=== PATIENT | female | born 1945 | race Caucasian/White ===

== ENCOUNTER 2019-12-11 20:12 | Emergency (ER) | payer OTHER ==
[~2019-12-11] VITALS: Ht 157.5 cm; Wt 65.8 kg
[~2019-12-11 20:12] MED LIST: GLUXR500 PO; PHEN100C4 PO; PRO20 PO
[2019-12-11 20:21] VITALS: BP_SYST 157
--- NOTE | 2019-12-11 20:27 | NUR ---
tPatient triaged and placed in waiting room. VSS and patient appears in no acute distress at this time. Accompanied by daughter, awaiting available bed, and MD notified of need for MSE.
--- NOTE | 2019-12-11 22:22 | NUR ---
Patient was wheeled into ED by daughter c/o right ankle pain. Pt states she was bending over to pickup driver mail, lost balance and fell. Pt tried to use ottoman to pick herself up but it moved causing patient to slip and fall, twisting ankle and per patient "felt a pop." Noted swelling to right ankle. Pt unable to bear weight. Pt denies hitting head and losing consciousness. NO other injuries/complaints per patient or noted.
--- NOTE | 2019-12-11 22:29 | NUR ---
ER Dr. Zheng in triage examining patient.
[2019-12-11 22:45] VITALS: BP_SYST 144
[2019-12-11] MEDS ORDERED: IBUPROFEN 600 MG TABLET PO ONE (22:45)
--- NOTE | 2019-12-11 22:45 | NUR ---
Patient given written and verbal discharge instructions and verbalizes understanding. ER MD discussed with patient the results and treatment provided. Patient in stable condition. ID arm band removed. Rx of ibuprofen given. Patient educated on pain management and to follow up with PMD. Pain Scale 0. Opportunity for questions provided and answered. Medication side effect fact sheet provided.
== END 2019-12-11 22:45 | disposition home or self-care (01) ==
LOC: SED 20:12
DX: S93.401A Sprain of unspecified ligament of right ankle, initial encounter (principal); E11.9 Type 2 diabetes mellitus without complications; Z79.84 Long term (current) use of oral hypoglycemic drugs; Z79.899 Other long term (current) drug therapy; W01.0XXA Fall on same level from slipping, tripping and stumbling without subsequent striking against object, initial encounter; Y93.89 Activity, other specified; Y92.89 Other specified places as the place of occurrence of the external cause; Y99.8 Other external cause status
CPT/HCPCS: 99283

== ENCOUNTER 2024-07-25 07:55 | Inpatient (IN) | payer OTHER ==
[~2024-07-25] VITALS: Ht 157.5 cm; Wt 68.0 kg
[2024-07-25] MEDS: 0.45% NACL 1,000 ML IV SCH (06:36)
[2024-07-25 07:56] VITALS: BP_SYST 141; PULSE 110; RESP 18; TEMP 98; O2SAT 96
[2024-07-25 08:43] LABS: BASOPHILS # (AUTO) 0.1 K/uL (0.0-0.2); BASOPHILS % (AUTO) 0.8 % (0.0-2.0); EOSINOPHILS # (AUTO) 0.2 K/uL (0.0-0.4); HEMOGLOBIN 13.4 g/dL (12.0-16.0); LYMPHOCYTES # (AUTO) 1.7 K/uL (1.0-5.5); MEAN CORPUSCULAR HEMOGLOBIN 30 pg (27-31); MEAN CORPUSCULAR HGB CONC 33 % (32-36); MEAN CORPUSCULAR VOLUME 89 fL (79.0-98.0); MONOCYTES # (AUTO) 1.2 K/uL (0.0-1.0); MONOCYTES % (AUTO) 9.9 % (1.7-9.3); NEUTROPHILS % (AUTO) 73.3 % (40.0-70.0); PLATELET COUNT (AUTO) 265 K/uL (130-430); RED BLOOD CELL COUNT(AUTO) 4.52 MIL/uL (4.2-6.2); RED CELL DISTRIBUTION WIDTH 13.9 % (9.0-15.0); WHITE BLOOD COUNT (AUTO) 12.3 K/uL (4.8-10.8)
[2024-07-25 09:00] LABS: ALANINE AMINOTRANSFERASE 28 U/L (12-78); ALBUMIN 3.3 g/dL (3.4-4.8); ANION GAP 9 (5-15); ASPARTATE AMINOTRANSFERASE 18 U/L (10-37); CALCIUM 9.3 mg/dL (8.4-11.0); CARBON DIOXIDE 25 mmol/L (23-29); CHLORIDE 98 mmol/L (98-107); CREATININE 1.43 mg/dL (0.55-1.30); GLUCOSE 188 mg/dL (74-106); SODIUM SERUM 132 mmol/L (136-145); TOTAL BILIRUBIN 0.4 mg/dL (0.0-1.0); TOTAL PROTEIN, SERUM 7.7 g/dL (6.4-8.3); UREA NITROGEN, BLOOD 12 mg/dL (8-21)
[2024-07-25 09:03] LABS: BILIRUBIN,DIRECT 0.1 mg/dL (0.0-0.3); LIPASE 32 U/L (16-77)
[2024-07-25] MEDS: ONDANSETRON HCL 4 MG/2 ML VIAL IVP ONE (09:10)
[2024-07-25] MEDS: MORPHINE 2 MG/ML INJ. SYRINGE IVP ONE (09:11)
[2024-07-25] MEDS ORDERED: ACT35 PO (10:09)
[2024-07-25] MEDS ORDERED: LOSA-412 PO (10:09)
[2024-07-25] MEDS ORDERED: FAMO20TA8 PO (10:09)
[2024-07-25] MEDS ORDERED: SIMV-343 PO (10:09)
[2024-07-25] MEDS: PIPERACILLIN/TAZO 3.375 GM in NS 50 ML IV ONE (10:13)
[2024-07-25] MEDS ORDERED: PIPERACILLIN/TAZOBACTAM 3.375 GM/VIAL (ZOSYN) IV ONE ×2 (10:15→15:25)
[2024-07-25 13:25] LABS: BILIRUBIN,URINE NEGATIVE (NEGATIVE); BLOOD, URINE NEGATIVE (NEGATIVE); CLARITY/URINE CLEAR (CLEAR); COLOR,URINE YELLOW (YELLOW); GLUCOSE,URINE NEGATIVE (NEGATIVE); KETONES,URINE NEGATIVE (NEGATIVE); LEUKOCYTE ESTERASE ,URINE TRACE (NEGATIVE); NITRITE, URINE NEGATIVE (NEGATIVE); PROTEIN URINE NEGATIVE (NEGATIVE); UROBILINOGEN,URINE 0.2 (0.2-1.0)
[2024-07-25 13:39] LABS: BACTERIA,URINE MANY /HPF (None Seen); RBC,URINE NONE SEEN /HPF (0-3); WBC,URINE 0-3 /HPF (0-3)
[2024-07-25] MEDS: INSULIN REGULAR, HUMAN 100 UNITS/ML, 3 ML VIAL SUBCUT ONE (15:20)
[2024-07-25] MEDS: PIPERACILLIN/TAZO 3.375 GM in D5W 50 ML IV SCH (15:25)
[2024-07-25] MEDS: FAMOTIDINE 20 MG TABLET PO ONE (15:25)
[2024-07-25] MEDS: INSULIN REGULAR, HUMAN 100 UNITS/ML, 3 ML VIAL SUBCUT SCH (17:00)
[2024-07-25 21:00] VITALS: BP_SYST 136; PULSE 87; RESP 20; TEMP 97.1; O2SAT 97
[2024-07-25] MEDS ORDERED: PHENYTOIN 100 MG CAPSULE PO SCH ×3 (21:00→23:30)
[2024-07-26] VITALS: BP_SYST 126; PULSE 89; RESP 18; TEMP 97; O2SAT 97
[2024-07-26] MEDS: PHENYTOIN 100 MG CAPSULE PO ONE (03:50)
[2024-07-26 08:00] VITALS: O2SAT 99
[2024-07-26 08:12] LABS: BASOPHILS % (AUTO) 0.5 % (0.0-2.0); EOSINOPHILS # (AUTO) 0.4 K/uL (0.0-0.4); EOSINOPHILS % (AUTO) 4.6 % (0.0-4.0); HEMATOCRIT 38.2 % (36-48); HEMOGLOBIN 12.9 g/dL (12.0-16.0); LYMPHOCYTES # (AUTO) 2.2 K/uL (1.0-5.5); LYMPHOCYTES % (AUTO) 29.2 % (20.5-51.5); MEAN CORPUSCULAR HEMOGLOBIN 30 pg (27-31); MEAN CORPUSCULAR HGB CONC 34 % (32-36); MEAN CORPUSCULAR VOLUME 88 fL (79.0-98.0); MONOCYTES # (AUTO) 0.7 K/uL (0.0-1.0); MONOCYTES % (AUTO) 8.7 % (1.7-9.3); NEUTROPHILS # (AUTO) 4.4 K/uL (1.8-7.7); PLATELET COUNT (AUTO) 256 K/uL (130-430); RED BLOOD CELL COUNT(AUTO) 4.32 MIL/uL (4.2-6.2); RED CELL DISTRIBUTION WIDTH 13.8 % (9.0-15.0); WHITE BLOOD COUNT (AUTO) 7.7 K/uL (4.8-10.8)
[2024-07-26 08:28] LABS: ANION GAP 7 (5-15); CALCIUM 8.8 mg/dL (8.4-11.0); CARBON DIOXIDE 26 mmol/L (23-29); CHLORIDE 98 mmol/L (98-107); CREATININE 1.44 mg/dL (0.55-1.30); GLUCOSE 140 mg/dL (74-106); SODIUM SERUM 131 mmol/L (136-145); UREA NITROGEN, BLOOD 11 mg/dL (8-21)
[2024-07-26] MEDS ORDERED: RISEDRONATE SODIUM 35 MG TABLET PO SCH (09:00)
[2024-07-26] MEDS: SIMVASTATIN 20 MG TABLET PO SCH (09:38)
[2024-07-26] MEDS: LOSARTAN POTASSIUM 25 MG TABLET PO SCH (09:38)
[2024-07-26] MEDS: FLUoxetine HCL 20 MG CAPSULE (PROzac) PO SCH (09:39)
[2024-07-26] MEDS: FAMOTIDINE 20 MG TABLET PO SCH (09:40)
[2024-07-26] MEDS: MILK OF MAGNESIA 30 ML UDC PO PRN (09:46)
[2024-07-26] MEDS ORDERED: NALOXONE HCL 0.4 MG/ML AMP (NARCAN) IVP PRN (12:00)
[2024-07-26] MEDS ORDERED: D5W 1,000 ML IV PRN (12:15)
[2024-07-26] MEDS ORDERED: DEXTROSE 50%-WATER 50 ML DISP.SYRIN IVP PRN (12:15)
[2024-07-26] MEDS ORDERED: GLUCOSE (DEXTROSE) ORAL GEL -Adults PO PRN (12:15)
[2024-07-26 12:38] VITALS: BP_SYST 134; PULSE 86; RESP 18; TEMP 97.2; O2SAT 97
[2024-07-26] MEDS: INSULIN REGULAR, HUMAN 100 UNITS/ML, 3 ML VIAL (humuLIN R) SUBCUT PRN (13:42)
[2024-07-26] MEDS: HYDROcodone/ACETAMIN 5-325 MG TAB (NORCO/ VICODIN) PO PRN (13:49)
[2024-07-26 16:44] VITALS: BP_SYST 116; PULSE 83; RESP 18; TEMP 97.4; O2SAT 98
[2024-07-26 20:05] VITALS: BP_SYST 129; PULSE 80; RESP 18; TEMP 96.5; O2SAT 98
[2024-07-26 20:55] VITALS: O2SAT 96
[2024-07-26] MEDS ORDERED: PHENYTOIN 100 MG CAPSULE PO SCH ×2 (21:00)
[2024-07-26] MEDS: PHENYTOIN 100 MG CAPSULE PO SCH (21:18)
[2024-07-27] VITALS (7 sets, daily range): BP systolic 125–153; PULSE 70–95; RESP 15–19; TEMP 96.8–98.4; O2SAT 96–98
[2024-07-27 06:11] LABS: BASOPHILS % (AUTO) 0.6 % (0.0-2.0); EOSINOPHILS # (AUTO) 0.4 K/uL (0.0-0.4); EOSINOPHILS % (AUTO) 6.2 % (0.0-4.0); HEMATOCRIT 36.7 % (36-48); HEMOGLOBIN 12.6 g/dL (12.0-16.0); LYMPHOCYTES # (AUTO) 1.6 K/uL (1.0-5.5); LYMPHOCYTES % (AUTO) 23.1 % (20.5-51.5); MEAN CORPUSCULAR HEMOGLOBIN 30 pg (27-31); MEAN CORPUSCULAR HGB CONC 34 % (32-36); MEAN CORPUSCULAR VOLUME 88 fL (79.0-98.0); MONOCYTES # (AUTO) 0.6 K/uL (0.0-1.0); MONOCYTES % (AUTO) 9.1 % (1.7-9.3); NEUTROPHILS # (AUTO) 4.3 K/uL (1.8-7.7); PLATELET COUNT (AUTO) 266 K/uL (130-430); RED BLOOD CELL COUNT(AUTO) 4.17 MIL/uL (4.2-6.2); RED CELL DISTRIBUTION WIDTH 13.5 % (9.0-15.0)
[2024-07-27 06:27] LABS: ANION GAP 11 (5-15); CALCIUM 8.8 mg/dL (8.4-11.0); CARBON DIOXIDE 25 mmol/L (23-29); CHLORIDE 100 mmol/L (98-107); GLUCOSE 107 mg/dL (74-106); POTASSIUM 4.3 mmol/L (3.5-5.1); SODIUM SERUM 136 mmol/L (136-145); UREA NITROGEN, BLOOD 11 mg/dL (8-21)
[2024-07-27 09:34] LABS: BASOPHILS # (AUTO) 0.1 K/uL (0.0-0.2); BASOPHILS % (AUTO) 0.7 % (0.0-2.0); EOSINOPHILS # (AUTO) 0.5 K/uL (0.0-0.4); EOSINOPHILS % (AUTO) 6.5 % (0.0-4.0); HEMATOCRIT 40.2 % (36-48); HEMOGLOBIN 13.6 g/dL (12.0-16.0); LYMPHOCYTES # (AUTO) 2.5 K/uL (1.0-5.5); LYMPHOCYTES % (AUTO) 31.2 % (20.5-51.5); MEAN CORPUSCULAR HEMOGLOBIN 30 pg (27-31); MEAN CORPUSCULAR HGB CONC 34 % (32-36); MEAN CORPUSCULAR VOLUME 89 fL (79.0-98.0); MONOCYTES # (AUTO) 0.6 K/uL (0.0-1.0); MONOCYTES % (AUTO) 7.7 % (1.7-9.3); NEUTROPHILS # (AUTO) 4.3 K/uL (1.8-7.7); NEUTROPHILS % (AUTO) 53.9 % (40.0-70.0); PLATELET COUNT (AUTO) 295 K/uL (130-430); RED BLOOD CELL COUNT(AUTO) 4.54 MIL/uL (4.2-6.2); RED CELL DISTRIBUTION WIDTH 13.3 % (9.0-15.0)
[2024-07-27 19:31] LABS: BASOPHILS # (AUTO) 0.1 K/uL (0.0-0.2); BASOPHILS % (AUTO) 0.9 % (0.0-2.0); EOSINOPHILS # (AUTO) 0.5 K/uL (0.0-0.4); EOSINOPHILS % (AUTO) 7.9 % (0.0-4.0); HEMATOCRIT 35.5 % (36-48); HEMOGLOBIN 12.4 g/dL (12.0-16.0); LYMPHOCYTES # (AUTO) 1.7 K/uL (1.0-5.5); LYMPHOCYTES % (AUTO) 27.9 % (20.5-51.5); MEAN CORPUSCULAR HEMOGLOBIN 31 pg (27-31); MEAN CORPUSCULAR HGB CONC 35 % (32-36); MEAN CORPUSCULAR VOLUME 88 fL (79.0-98.0); MONOCYTES # (AUTO) 0.5 K/uL (0.0-1.0); NEUTROPHILS # (AUTO) 3.3 K/uL (1.8-7.7); NEUTROPHILS % (AUTO) 54.3 % (40.0-70.0); PLATELET COUNT (AUTO) 277 K/uL (130-430); RED BLOOD CELL COUNT(AUTO) 4.05 MIL/uL (4.2-6.2); RED CELL DISTRIBUTION WIDTH 13.5 % (9.0-15.0)
[2024-07-28] VITALS: BP_SYST 120; PULSE 93; RESP 18; TEMP 98.2
[2024-07-28 07:55] LABS: ANION GAP 11 (5-15); CALCIUM 8.9 mg/dL (8.4-11.0); CARBON DIOXIDE 24 mmol/L (23-29); CHLORIDE 102 mmol/L (98-107); CREATININE 1.27 mg/dL (0.55-1.30); GLUCOSE 126 mg/dL (74-106); POTASSIUM 4.4 mmol/L (3.5-5.1); SODIUM SERUM 137 mmol/L (136-145); UREA NITROGEN, BLOOD 8 mg/dL (8-21)
[2024-07-28 08:00] VITALS: BP_SYST 128; PULSE 81; RESP 16; TEMP 98.3; O2SAT 95; O2SAT 96
[2024-07-28 08:26] LABS: BASOPHILS # (AUTO) 0.1 K/uL (0.0-0.2); BASOPHILS % (AUTO) 0.8 % (0.0-2.0); EOSINOPHILS # (AUTO) 0.5 K/uL (0.0-0.4); EOSINOPHILS % (AUTO) 7.6 % (0.0-4.0); HEMATOCRIT 37.8 % (36-48); HEMOGLOBIN 12.8 g/dL (12.0-16.0); LYMPHOCYTES % (AUTO) 30.5 % (20.5-51.5); MEAN CORPUSCULAR HEMOGLOBIN 30 pg (27-31); MEAN CORPUSCULAR HGB CONC 34 % (32-36); MEAN CORPUSCULAR VOLUME 88 fL (79.0-98.0); MONOCYTES # (AUTO) 0.5 K/uL (0.0-1.0); MONOCYTES % (AUTO) 8.2 % (1.7-9.3); NEUTROPHILS # (AUTO) 3.5 K/uL (1.8-7.7); NEUTROPHILS % (AUTO) 52.9 % (40.0-70.0); PLATELET COUNT (AUTO) 307 K/uL (130-430); RED BLOOD CELL COUNT(AUTO) 4.29 MIL/uL (4.2-6.2); RED CELL DISTRIBUTION WIDTH 13.7 % (9.0-15.0); WHITE BLOOD COUNT (AUTO) 6.6 K/uL (4.8-10.8)
[2024-07-28 12:00] VITALS: BP_SYST 129; PULSE 80; RESP 14; TEMP 98.4; O2SAT 95
[2024-07-28 16:00] VITALS: BP_SYST 129; PULSE 82; RESP 14; TEMP 98.3; O2SAT 96
[2024-07-28 20:00] VITALS: BP_SYST 133; PULSE 92; RESP 18; O2SAT 98
[2024-07-28] MEDS: metroNIDAZOLE 500 mg/NS 100 ML IV SCH (21:27)
[2024-07-29] VITALS: BP_SYST 136; PULSE 80; RESP 18; TEMP 99.5; O2SAT 97
[2024-07-29 08:23] VITALS: O2SAT 98
[2024-07-29 08:31] VITALS: BP_SYST 136; PULSE 82; RESP 16; TEMP 97.1; O2SAT 98
[2024-07-29 09:26] VITALS: BP_SYST 121; PULSE 72; RESP 16; TEMP 97.1; O2SAT 98
[2024-07-29 11:11] VITALS: BP_SYST 138; PULSE 81; RESP 15; TEMP 97.7; O2SAT 97
[2024-07-29] MEDS ORDERED: AMOX-404 PO (12:57)
[2024-07-29] MEDS ORDERED: METR-154 PO (12:57)
== END 2024-07-29 13:48 | disposition home or self-care (01) | DRG 392 ==
LOC: SED 07:55 → SMU 12:13
PROVIDERS: ADMIT Specialist; ATTEND Specialist
DX: K57.32 Diverticulitis of large intestine without perforation or abscess without bleeding (principal); K59.00 Constipation, unspecified; I10 Essential (primary) hypertension; E66.9 Obesity, unspecified; I73.9 Peripheral vascular disease, unspecified; E78.5 Hyperlipidemia, unspecified; K21.9 Gastro-esophageal reflux disease without esophagitis; Z20.822 Contact with and (suspected) exposure to COVID-19; D72.829 Elevated white blood cell count, unspecified; E11.51 Type 2 diabetes mellitus with diabetic peripheral angiopathy without gangrene; Z68.27 Body mass index [BMI] 27.0-27.9, adult; Z79.899 Other long term (current) drug therapy; Z88.8 Allergy status to other drugs, medicaments and biological substances
CPT/HCPCS: 36415; 71045; 80048; 80076; 80185; 81000; 81001; 81015; 82948; 83605; 83690; 83880; 84484; 85025; 87040; 87086; 93005; 96365; 97110-GP; 97112-GP; 97116-GP; 97530-GP; 99285; J0696; J2270; J2405; J2543; J3490; J7030; J7060

== ENCOUNTER 2024-08-03 12:09 | Emergency (ER) | payer OTHER ==
[~2024-08-03] VITALS: Ht 157.5 cm; Wt 66.2 kg
[~2024-08-03 12:09] MED LIST changes: +ACT35 PO; +AMOX-404 PO; +FAMO20TA8 PO; +LOSA-412 PO; +METR-154 PO; +SIMV-343 PO
[2024-08-03 12:11] VITALS: BP_SYST 134; PULSE 92; RESP 20; TEMP 98.3; O2SAT 94
[2024-08-03 12:46] LABS: BASOPHILS # (AUTO) 0.1 K/uL (0.0-0.2); BASOPHILS % (AUTO) 0.6 % (0.0-2.0); EOSINOPHILS # (AUTO) 0.7 K/uL (0.0-0.4); EOSINOPHILS % (AUTO) 8.2 % (0.0-4.0); HEMATOCRIT 36.8 % (36-48); HEMOGLOBIN 12.7 g/dL (12.0-16.0); LYMPHOCYTES # (AUTO) 1.7 K/uL (1.0-5.5); LYMPHOCYTES % (AUTO) 20.5 % (20.5-51.5); MEAN CORPUSCULAR HEMOGLOBIN 30 pg (27-31); MEAN CORPUSCULAR HGB CONC 35 % (32-36); MEAN CORPUSCULAR VOLUME 86 fL (79.0-98.0); MONOCYTES # (AUTO) 0.6 K/uL (0.0-1.0); MONOCYTES % (AUTO) 7.4 % (1.7-9.3); NEUTROPHILS # (AUTO) 5.4 K/uL (1.8-7.7); NEUTROPHILS % (AUTO) 63.3 % (40.0-70.0); PLATELET COUNT (AUTO) 330 K/uL (130-430); RED BLOOD CELL COUNT(AUTO) 4.26 MIL/uL (4.2-6.2); RED CELL DISTRIBUTION WIDTH 13.5 % (9.0-15.0); WHITE BLOOD COUNT (AUTO) 8.5 K/uL (4.8-10.8)
[2024-08-03] MEDS: NACL 0.9% 1,000 ML IV ONE (13:05)
[2024-08-03 13:06] LABS: PROTHROMBIN TIME 10.4 SECS (9.5-12.5)
[2024-08-03 13:19] LABS: ALANINE AMINOTRANSFERASE 37 U/L (12-78); ANION GAP 12 (5-15); ASPARTATE AMINOTRANSFERASE 30 U/L (10-37); BILIRUBIN,DIRECT 0.1 mg/dL (0.0-0.3); CALCIUM 8.5 mg/dL (8.4-11.0); CARBON DIOXIDE 21 mmol/L (23-29); CHLORIDE 91 mmol/L (98-107); CREATINE KINASE, TOTAL 38 U/L (26-192); CREATININE 1.03 mg/dL (0.55-1.30); FREE T4 (FREE THYROXINE) 1.3 ng/dL (0.6-1.6); GLUCOSE 150 mg/dL (74-106); LIPASE 50 U/L (16-77); POTASSIUM 3.8 mmol/L (3.5-5.1); SODIUM SERUM 124 mmol/L (136-145); THYROID STIMULATING HORMONE 2.47 uIu/mL (0.34-4.82); TOTAL BILIRUBIN 0.2 mg/dL (0.0-1.0); TOTAL PROTEIN, SERUM 6.8 g/dL (6.4-8.3); UREA NITROGEN, BLOOD 15 mg/dL (8-21)
[2024-08-03 13:36] LABS: ACETONE, SERUM NEGATIVE (NEGATIVE)
[2024-08-03 14:38] LABS: BILIRUBIN,URINE NEGATIVE (NEGATIVE); BLOOD, URINE NEGATIVE (NEGATIVE); CLARITY/URINE CLEAR (CLEAR); COLOR,URINE YELLOW (YELLOW); GLUCOSE,URINE NEGATIVE (NEGATIVE); KETONES,URINE NEGATIVE (NEGATIVE); LEUKOCYTE ESTERASE ,URINE TRACE (NEGATIVE); NITRITE, URINE NEGATIVE (NEGATIVE); PH,URINE 6.5 (5.0-8.0); PROTEIN URINE NEGATIVE (NEGATIVE); UROBILINOGEN,URINE 0.2 (0.2-1.0)
[2024-08-03 14:46] LABS: BACTERIA,URINE RARE /HPF (None Seen); MUCUS,URINE None Seen /LPF (None Seen); RBC,URINE NONE SEEN /HPF (0-3); WBC,URINE 0-3 /HPF (0-3)
[2024-08-03 16:01] VITALS: BP_SYST 136; PULSE 87; RESP 16; TEMP 98.3; O2SAT 97
== END 2024-08-03 16:01 | disposition home or self-care (01) ==
LOC: SED 12:09
DX: E87.1 Hypo-osmolality and hyponatremia (principal); R53.1 Weakness; R11.0 Nausea; R19.7 Diarrhea, unspecified; E11.9 Type 2 diabetes mellitus without complications; I10 Essential (primary) hypertension; K21.9 Gastro-esophageal reflux disease without esophagitis; Z79.899 Other long term (current) drug therapy; Z79.2 Long term (current) use of antibiotics
CPT/HCPCS: 99285; 74176; 96360; 71045; 80076; 80048; 81001; 82009; 82550; 84439; 83690; 84443; 85025; 85610; 85730; 84484; 36415; 93005; 83605; J7030; 81000; 81015

== ENCOUNTER 2024-08-06 17:10 | Inpatient (IN) | payer OTHER ==
[~2024-08-06] VITALS: Ht 157.5 cm; Wt 68.0 kg
[2024-08-06 17:33] VITALS: BP_SYST 149; PULSE 76; RESP 18; TEMP 97.4; O2SAT 98
[2024-08-06 18:07] LABS: BASOPHILS % (AUTO) 0.4 % (0.0-2.0); EOSINOPHILS # (AUTO) 0.9 K/uL (0.0-0.4); EOSINOPHILS % (AUTO) 8.1 % (0.0-4.0); HEMATOCRIT 34.8 % (36-48); HEMOGLOBIN 12.2 g/dL (12.0-16.0); LYMPHOCYTES # (AUTO) 2.3 K/uL (1.0-5.5); LYMPHOCYTES % (AUTO) 20.2 % (20.5-51.5); MEAN CORPUSCULAR HEMOGLOBIN 30 pg (27-31); MEAN CORPUSCULAR HGB CONC 35 % (32-36); MEAN CORPUSCULAR VOLUME 86 fL (79.0-98.0); MONOCYTES # (AUTO) 0.9 K/uL (0.0-1.0); MONOCYTES % (AUTO) 8.1 % (1.7-9.3); NEUTROPHILS # (AUTO) 7.3 K/uL (1.8-7.7); NEUTROPHILS % (AUTO) 63.2 % (40.0-70.0); PLATELET COUNT (AUTO) 352 K/uL (130-430); RED BLOOD CELL COUNT(AUTO) 4.06 MIL/uL (4.2-6.2); RED CELL DISTRIBUTION WIDTH 13.8 % (9.0-15.0); WHITE BLOOD COUNT (AUTO) 11.6 K/uL (4.8-10.8)
[2024-08-06 18:16] LABS: INR 0.9 (0.8-1.2); PROTHROMBIN TIME 9.9 SECS (9.5-12.5)
[2024-08-06 18:22] LABS: ALANINE AMINOTRANSFERASE 30 U/L (12-78); ALBUMIN 2.9 g/dL (3.4-4.8); ANION GAP 12 (5-15); ASPARTATE AMINOTRANSFERASE 16 U/L (10-37); CALCIUM 8.3 mg/dL (8.4-11.0); CARBON DIOXIDE 19 mmol/L (23-29); CHLORIDE 92 mmol/L (98-107); CREATININE 1.02 mg/dL (0.55-1.30); GLUCOSE 135 mg/dL (74-106); POTASSIUM 4.3 mmol/L (3.5-5.1); SODIUM SERUM 123 mmol/L (136-145); TOTAL BILIRUBIN 0.2 mg/dL (0.0-1.0); TOTAL PROTEIN, SERUM 6.5 g/dL (6.4-8.3); UREA NITROGEN, BLOOD 17 mg/dL (8-21)
[2024-08-06 18:28] LABS: AMYLASE 52 U/L (0-100); BILIRUBIN,DIRECT 0.1 mg/dL (0.0-0.3); LACTATE DEHYDROGENASE 92 U/L (81-234); LIPASE 72 U/L (16-77)
[2024-08-06 18:37] LABS: ACETONE, SERUM NEGATIVE (NEGATIVE)
[2024-08-06 19:13] LABS: BILIRUBIN,URINE NEGATIVE (NEGATIVE); BLOOD, URINE NEGATIVE (NEGATIVE); CLARITY/URINE CLEAR (CLEAR); COLOR,URINE YELLOW (YELLOW); GLUCOSE,URINE NEGATIVE (NEGATIVE); KETONES,URINE NEGATIVE (NEGATIVE); LEUKOCYTE ESTERASE ,URINE TRACE (NEGATIVE); NITRITE, URINE NEGATIVE (NEGATIVE); PH,URINE 6.5 (5.0-8.0); PROTEIN URINE NEGATIVE (NEGATIVE); UROBILINOGEN,URINE 0.2 (0.2-1.0)
[2024-08-06 19:24] LABS: BACTERIA,URINE RARE /HPF (None Seen); MUCUS,URINE None Seen /LPF (None Seen); RBC,URINE NONE SEEN /HPF (0-3)
[2024-08-06] MEDS: NACL 0.9% 1,000 ML IV ONE ×2 (19:37→21:21)
[2024-08-06] MEDS: LORazepam 2 MG/ML VIAL IVP ONE (19:46)
[2024-08-06 21:58] VITALS: BP_SYST 134; PULSE 74; RESP 18; TEMP 97.8
[2024-08-06 22:28] LABS: ANION GAP 11 (5-15); CALCIUM 8.4 mg/dL (8.4-11.0); CARBON DIOXIDE 22 mmol/L (23-29); CHLORIDE 97 mmol/L (98-107); CREATININE 1.02 mg/dL (0.55-1.30); GLUCOSE 124 mg/dL (74-106); POTASSIUM 4.1 mmol/L (3.5-5.1); SODIUM SERUM 130 mmol/L (136-145); UREA NITROGEN, BLOOD 15 mg/dL (8-21)
[2024-08-06] MEDS: cefTRIAXone 1 GM IVPB PREMIX 50 ML IV ONE (23:20)
[2024-08-06] MEDS: DIPHENHYDRAMINE HCL 12.5 MG/5 ML UDC PO SCH (23:21)
[2024-08-06] MEDS: cefTRIAXone 1 GM in D5W 50 ML IV SCH (23:21)
[2024-08-07] VITALS: BP_SYST 128; PULSE 78; RESP 18; TEMP 97.8; O2SAT 98
[2024-08-07 07:40] LABS: ANION GAP 10 (5-15); CALCIUM 8.2 mg/dL (8.4-11.0); CARBON DIOXIDE 24 mmol/L (23-29); CHLORIDE 100 mmol/L (98-107); CREATININE 0.95 mg/dL (0.55-1.30); GLUCOSE 107 mg/dL (74-106); POTASSIUM 4.3 mmol/L (3.5-5.1); SODIUM SERUM 134 mmol/L (136-145); UREA NITROGEN, BLOOD 12 mg/dL (8-21)
[2024-08-07 08:00] VITALS: O2SAT 98
[2024-08-07 08:29] VITALS: BP_SYST 139; PULSE 78; RESP 18; TEMP 97.3; O2SAT 95
[2024-08-07 11:08] VITALS: BP_SYST 150; PULSE 84; RESP 16; TEMP 97.8; O2SAT 96
[2024-08-07] MEDS ORDERED: DIATR MEGLU/DIATRIZ SOD 30 ML SOLUTION PO ONE (14:15)
[2024-08-07 14:17] LABS: ANION GAP 10 (5-15); CALCIUM 8.9 mg/dL (8.4-11.0); CARBON DIOXIDE 24 mmol/L (23-29); CHLORIDE 98 mmol/L (98-107); CREATININE 1.21 mg/dL (0.55-1.30); GLUCOSE 181 mg/dL (74-106); POTASSIUM 4.3 mmol/L (3.5-5.1); SODIUM SERUM 132 mmol/L (136-145); UREA NITROGEN, BLOOD 13 mg/dL (8-21)
[2024-08-07 15:38] VITALS: BP_SYST 142; PULSE 93; RESP 16; TEMP 97.9; O2SAT 97
[2024-08-07 20:00] VITALS: BP_SYST 157; PULSE 89; RESP 18; TEMP 98.3; O2SAT 96
[2024-08-07] MEDS: INSULIN LISPRO SLIDING SCALE 100 UNITS/ML, 3 ML VIAL (humaLOG) SUBCUT PRN (21:07)
[2024-08-07 22:41] LABS: ANION GAP 9 (5-15); CALCIUM 8.8 mg/dL (8.4-11.0); CARBON DIOXIDE 25 mmol/L (23-29); CHLORIDE 98 mmol/L (98-107); CREATININE 1.11 mg/dL (0.55-1.30); GLUCOSE 157 mg/dL (74-106); POTASSIUM 4.1 mmol/L (3.5-5.1); SODIUM SERUM 132 mmol/L (136-145); UREA NITROGEN, BLOOD 15 mg/dL (8-21)
[2024-08-08] VITALS: BP_SYST 147; PULSE 85; RESP 18; TEMP 97.9; O2SAT 95
[2024-08-08 07:16] LABS: BASOPHILS % (AUTO) 0.4 % (0.0-2.0); EOSINOPHILS % (AUTO) 10.1 % (0.0-4.0); HEMATOCRIT 37.1 % (36-48); HEMOGLOBIN 12.7 g/dL (12.0-16.0); LYMPHOCYTES # (AUTO) 2.1 K/uL (1.0-5.5); LYMPHOCYTES % (AUTO) 20.9 % (20.5-51.5); MEAN CORPUSCULAR HEMOGLOBIN 30 pg (27-31); MEAN CORPUSCULAR HGB CONC 34 % (32-36); MEAN CORPUSCULAR VOLUME 87 fL (79.0-98.0); MONOCYTES # (AUTO) 0.8 K/uL (0.0-1.0); NEUTROPHILS # (AUTO) 5.9 K/uL (1.8-7.7); NEUTROPHILS % (AUTO) 60.6 % (40.0-70.0); PLATELET COUNT (AUTO) 371 K/uL (130-430); RED BLOOD CELL COUNT(AUTO) 4.26 MIL/uL (4.2-6.2); RED CELL DISTRIBUTION WIDTH 13.9 % (9.0-15.0); WHITE BLOOD COUNT (AUTO) 9.8 K/uL (4.8-10.8)
[2024-08-08 07:28] LABS: ANION GAP 11 (5-15); CALCIUM 8.7 mg/dL (8.4-11.0); CARBON DIOXIDE 25 mmol/L (23-29); CHLORIDE 96 mmol/L (98-107); CREATININE 1.03 mg/dL (0.55-1.30); GLUCOSE 126 mg/dL (74-106); POTASSIUM 4.1 mmol/L (3.5-5.1); SODIUM SERUM 132 mmol/L (136-145); UREA NITROGEN, BLOOD 14 mg/dL (8-21)
[2024-08-08 07:51] VITALS: O2SAT 97
[2024-08-08 08:35] VITALS: BP_SYST 146; PULSE 81; RESP 18; TEMP 97.2
[2024-08-08] MEDS: CITALOPRAM HYDROBROMIDE 20 MG TABLET PO SCH (12:29)
[2024-08-08 12:45] VITALS: BP_SYST 154; PULSE 92; RESP 16; TEMP 96.8; O2SAT 98
[2024-08-08 15:33] LABS: ANION GAP 11 (5-15); CARBON DIOXIDE 23 mmol/L (23-29); CHLORIDE 95 mmol/L (98-107); CREATININE 1.27 mg/dL (0.55-1.30); GLUCOSE 149 mg/dL (74-106); POTASSIUM 3.7 mmol/L (3.5-5.1); SODIUM SERUM 129 mmol/L (136-145); UREA NITROGEN, BLOOD 14 mg/dL (8-21)
[2024-08-08 16:45] VITALS: BP_SYST 158; PULSE 86; RESP 18; TEMP 98.2; O2SAT 98
[2024-08-08 20:00] VITALS: BP_SYST 157; PULSE 93; RESP 20; TEMP 98.8; O2SAT 98
[2024-08-08] MEDS ORDERED: PHENYTOIN 100 MG CAPSULE PO SCH (21:00)
[2024-08-08 22:34] LABS: ANION GAP 7 (5-15); CALCIUM 8.6 mg/dL (8.4-11.0); CARBON DIOXIDE 25 mmol/L (23-29); CHLORIDE 94 mmol/L (98-107); CREATININE 1.26 mg/dL (0.55-1.30); GLUCOSE 153 mg/dL (74-106); POTASSIUM 4.1 mmol/L (3.5-5.1); SODIUM SERUM 126 mmol/L (136-145); UREA NITROGEN, BLOOD 20 mg/dL (8-21)
[2024-08-08] MEDS: PHENYTOIN 100 MG CAPSULE PO ONE (23:51)
[2024-08-09 01:10] VITALS: RESP 20; TEMP 98; O2SAT 98
[2024-08-09 07:52] LABS: ANION GAP 8 (5-15); CALCIUM 8.7 mg/dL (8.4-11.0); CARBON DIOXIDE 24 mmol/L (23-29); CHLORIDE 94 mmol/L (98-107); CREATININE 1.05 mg/dL (0.55-1.30); GLUCOSE 151 mg/dL (74-106); POTASSIUM 3.8 mmol/L (3.5-5.1); SODIUM SERUM 126 mmol/L (136-145); UREA NITROGEN, BLOOD 14 mg/dL (8-21)
[2024-08-09 08:00] VITALS: O2SAT 97
[2024-08-09] MEDS ORDERED: PHENYTOIN 100 MG CAPSULE PO SCH (09:00)
[2024-08-09 11:07] VITALS: BP_SYST 151; PULSE 97; RESP 16; TEMP 97.2; O2SAT 96
[2024-08-09 15:03] VITALS: BP_SYST 143; PULSE 78; RESP 16; TEMP 96.1; O2SAT 99
[2024-08-09 16:01] LABS: ANION GAP 12 (5-15); CALCIUM 8.6 mg/dL (8.4-11.0); CARBON DIOXIDE 22 mmol/L (23-29); CHLORIDE 91 mmol/L (98-107); CREATININE 1.04 mg/dL (0.55-1.30); GLUCOSE 136 mg/dL (74-106); POTASSIUM 4.2 mmol/L (3.5-5.1); SODIUM SERUM 125 mmol/L (136-145); UREA NITROGEN, BLOOD 13 mg/dL (8-21)
[2024-08-09] MEDS: LORazepam 1 MG TABLET PO PRN (17:38)
[2024-08-09 19:30] VITALS: BP_SYST 132; PULSE 91; RESP 18; TEMP 96.1; O2SAT 94; O2SAT 95
[2024-08-09] MEDS: SODIUM CHLORIDE 3% *HI-ALERT* 250 ML IV PRN (19:55)
[2024-08-09] MEDS: PHENYTOIN 100 MG CAPSULE PO SCH (20:58)
[2024-08-09 22:08] LABS: ANION GAP 8 (5-15); CALCIUM 8.3 mg/dL (8.4-11.0); CARBON DIOXIDE 26 mmol/L (23-29); CHLORIDE 93 mmol/L (98-107); CREATININE 1.22 mg/dL (0.55-1.30); GLUCOSE 234 mg/dL (74-106); POTASSIUM 3.9 mmol/L (3.5-5.1); SODIUM SERUM 127 mmol/L (136-145); UREA NITROGEN, BLOOD 15 mg/dL (8-21)
[2024-08-10] VITALS (7 sets, daily range): BP systolic 139–145; PULSE 83–99; RESP 15–18; TEMP 96.8–98.6; O2SAT 95–98
[2024-08-10 07:41] LABS: ANION GAP 11 (5-15); CALCIUM 8.2 mg/dL (8.4-11.0); CARBON DIOXIDE 23 mmol/L (23-29); CHLORIDE 98 mmol/L (98-107); CREATININE 0.98 mg/dL (0.55-1.30); GLUCOSE 127 mg/dL (74-106); SODIUM SERUM 132 mmol/L (136-145); UREA NITROGEN, BLOOD 13 mg/dL (8-21)
[2024-08-10] MEDS: FUROSEMIDE 20 MG TABLET PO ONE (11:09)
[2024-08-11] VITALS (7 sets, daily range): BP systolic 138–159; PULSE 79–96; RESP 16–18; TEMP 97.3–98.4; O2SAT 93–99
[2024-08-11] MEDS: FUROSEMIDE 20 MG TABLET PO SCH (10:09)
[2024-08-11 10:12] LABS: BASOPHILS # (AUTO) 0.1 K/uL (0.0-0.2); BASOPHILS % (AUTO) 0.8 % (0.0-2.0); EOSINOPHILS # (AUTO) 0.5 K/uL (0.0-0.4); EOSINOPHILS % (AUTO) 7.5 % (0.0-4.0); HEMOGLOBIN 12.8 g/dL (12.0-16.0); LYMPHOCYTES # (AUTO) 1.3 K/uL (1.0-5.5); LYMPHOCYTES % (AUTO) 18.8 % (20.5-51.5); MEAN CORPUSCULAR HEMOGLOBIN 30 pg (27-31); MEAN CORPUSCULAR HGB CONC 34 % (32-36); MEAN CORPUSCULAR VOLUME 88 fL (79.0-98.0); MONOCYTES # (AUTO) 0.5 K/uL (0.0-1.0); MONOCYTES % (AUTO) 8.2 % (1.7-9.3); NEUTROPHILS # (AUTO) 4.4 K/uL (1.8-7.7); NEUTROPHILS % (AUTO) 64.7 % (40.0-70.0); PLATELET COUNT (AUTO) 369 K/uL (130-430); RED BLOOD CELL COUNT(AUTO) 4.33 MIL/uL (4.2-6.2); RED CELL DISTRIBUTION WIDTH 14.1 % (9.0-15.0); WHITE BLOOD COUNT (AUTO) 6.7 K/uL (4.8-10.8)
[2024-08-11 10:26] LABS: ANION GAP 8 (5-15); CALCIUM 8.5 mg/dL (8.4-11.0); CARBON DIOXIDE 27 mmol/L (23-29); CHLORIDE 92 mmol/L (98-107); CREATININE 1.03 mg/dL (0.55-1.30); GLUCOSE 188 mg/dL (74-106); POTASSIUM 4.1 mmol/L (3.5-5.1); SODIUM SERUM 127 mmol/L (136-145); UREA NITROGEN, BLOOD 11 mg/dL (8-21)
[2024-08-12 00:02] VITALS: BP_SYST 143; PULSE 83; RESP 18; TEMP 97.6; O2SAT 97
[2024-08-12 07:17] LABS: ANION GAP 8 (5-15); CALCIUM 8.5 mg/dL (8.4-11.0); CARBON DIOXIDE 24 mmol/L (23-29); CHLORIDE 96 mmol/L (98-107); GLUCOSE 145 mg/dL (74-106); POTASSIUM 3.4 mmol/L (3.5-5.1); SODIUM SERUM 128 mmol/L (136-145); UREA NITROGEN, BLOOD 9 mg/dL (8-21)
[2024-08-12 07:48] LABS: BASOPHILS # (AUTO) 0.1 K/uL (0.0-0.2); BASOPHILS % (AUTO) 0.7 % (0.0-2.0); EOSINOPHILS # (AUTO) 0.7 K/uL (0.0-0.4); EOSINOPHILS % (AUTO) 8.3 % (0.0-4.0); HEMATOCRIT 36.8 % (36-48); HEMOGLOBIN 12.7 g/dL (12.0-16.0); LYMPHOCYTES # (AUTO) 1.8 K/uL (1.0-5.5); LYMPHOCYTES % (AUTO) 20.5 % (20.5-51.5); MEAN CORPUSCULAR HEMOGLOBIN 30 pg (27-31); MEAN CORPUSCULAR HGB CONC 34 % (32-36); MEAN CORPUSCULAR VOLUME 87 fL (79.0-98.0); MONOCYTES # (AUTO) 0.8 K/uL (0.0-1.0); MONOCYTES % (AUTO) 9.5 % (1.7-9.3); NEUTROPHILS # (AUTO) 5.4 K/uL (1.8-7.7); PLATELET COUNT (AUTO) 361 K/uL (130-430); RED BLOOD CELL COUNT(AUTO) 4.24 MIL/uL (4.2-6.2)
[2024-08-12 08:00] VITALS: BP_SYST 151; PULSE 83; RESP 16; TEMP 97.1; O2SAT 98
[2024-08-12 08:05] LABS: WHITE BLOOD COUNT (AUTO) 8.8 K/uL (4.8-10.8)
[2024-08-12 09:00] VITALS: O2SAT 98
[2024-08-12 11:17] VITALS: BP_SYST 141; PULSE 79; RESP 16; TEMP 97.1; O2SAT 97
[2024-08-12] MEDS ORDERED: TOLVAPTAN Non-Formulary 15 MG TABLET PO SCH (12:00)
[2024-08-12 15:02] VITALS: BP_SYST 148; PULSE 92; RESP 16; TEMP 97.6; O2SAT 97
[2024-08-12] MEDS: NACL 0.9% 1,000 ML IV SCH (17:22)
[2024-08-12 20:00] VITALS: BP_SYST 149; PULSE 91; RESP 18; TEMP 97.9; O2SAT 98
[2024-08-12] MEDS: SODIUM CHLORIDE 1,000 MG TABLET PO SCH (21:24)
[2024-08-13] VITALS: BP_SYST 119; PULSE 79; RESP 18; TEMP 97.7; O2SAT 99
[2024-08-13 07:30] VITALS: BP_SYST 112; BP_SYST 133; PULSE 101; PULSE 96; RESP 14; RESP 16; TEMP 97.5; TEMP 97.7; O2SAT 97; O2SAT 99
[2024-08-13 07:34] LABS: BASOPHILS # (AUTO) 0.1 K/uL (0.0-0.2); EOSINOPHILS # (AUTO) 0.7 K/uL (0.0-0.4); EOSINOPHILS % (AUTO) 9.2 % (0.0-4.0); HEMATOCRIT 34.8 % (36-48); HEMOGLOBIN 11.8 g/dL (12.0-16.0); LYMPHOCYTES # (AUTO) 2.1 K/uL (1.0-5.5); LYMPHOCYTES % (AUTO) 25.9 % (20.5-51.5); MEAN CORPUSCULAR HEMOGLOBIN 30 pg (27-31); MEAN CORPUSCULAR HGB CONC 34 % (32-36); MEAN CORPUSCULAR VOLUME 88 fL (79.0-98.0); MONOCYTES # (AUTO) 0.8 K/uL (0.0-1.0); MONOCYTES % (AUTO) 9.9 % (1.7-9.3); NEUTROPHILS # (AUTO) 4.3 K/uL (1.8-7.7); PLATELET COUNT (AUTO) 350 K/uL (130-430); RED BLOOD CELL COUNT(AUTO) 3.97 MIL/uL (4.2-6.2); RED CELL DISTRIBUTION WIDTH 14.1 % (9.0-15.0); WHITE BLOOD COUNT (AUTO) 7.9 K/uL (4.8-10.8)
[2024-08-13 08:14] LABS: ALANINE AMINOTRANSFERASE 33 U/L (12-78); ALBUMIN 2.7 g/dL (3.4-4.8); ANION GAP 7 (5-15); ASPARTATE AMINOTRANSFERASE 23 U/L (10-37); CALCIUM 7.9 mg/dL (8.4-11.0); CARBON DIOXIDE 24 mmol/L (23-29); CHLORIDE 101 mmol/L (98-107); CREATININE 0.95 mg/dL (0.55-1.30); GLUCOSE 102 mg/dL (74-106); POTASSIUM 3.4 mmol/L (3.5-5.1); SODIUM SERUM 132 mmol/L (136-145); TOTAL BILIRUBIN 0.2 mg/dL (0.0-1.0); TOTAL PROTEIN, SERUM 6.2 g/dL (6.4-8.3); UREA NITROGEN, BLOOD 12 mg/dL (8-21)
[2024-08-13 09:00] VITALS: O2SAT 97
[2024-08-13 12:00] VITALS: BP_SYST 148; PULSE 97; RESP 15; TEMP 97.5; O2SAT 98
[2024-08-13] MEDS ORDERED: CEL20 PO (12:23)
[2024-08-13] MEDS ORDERED: FURO-150 PO (12:23)
[2024-08-13 14:21] VITALS: BP_SYST 148; PULSE 97; RESP 15; TEMP 97.5; O2SAT 98
== END 2024-08-13 14:15 | disposition home health service (06) | DRG 641 ==
LOC: SED 17:10 → SMU 20:13
PROVIDERS: ADMIT Specialist; ATTEND Specialist
DX: E87.1 Hypo-osmolality and hyponatremia (principal); E44.1 Mild protein-calorie malnutrition; N39.0 Urinary tract infection, site not specified; E11.65 Type 2 diabetes mellitus with hyperglycemia; E86.0 Dehydration; I10 Essential (primary) hypertension; E66.9 Obesity, unspecified; R62.7 Adult failure to thrive; R19.7 Diarrhea, unspecified; E87.5 Hyperkalemia; F32.A Depression, unspecified; E11.51 Type 2 diabetes mellitus with diabetic peripheral angiopathy without gangrene; G40.909 Epilepsy, unspecified, not intractable, without status epilepticus; Z86.79 Personal history of other diseases of the circulatory system; Z79.899 Other long term (current) drug therapy; Z68.27 Body mass index [BMI] 27.0-27.9, adult
CPT/HCPCS: 36415; 74018; 80048; 80053; 80076; 81000; 81001; 81015; 82009; 82150; 82948; 83605; 83615; 83690; 85025; 85610; 85730; 87040; 87081; 87086; 93005; 97110-GP; 97116-GP; 97530-GP; 99285; J0696; J2060; J3490; J7030; J7040; J7060; Q9964